=== PATIENT | male | born 1940 | race Caucasian/White ===

== ENCOUNTER 2021-08-18 09:43 | Inpatient (IN) | payer MEDICARE, BC ==
[2004-10-07 19:15] VITALS: BP 150/83
[~2021-08-18] VITALS: Ht 172.7 cm; Wt 102.0 kg
[2021-08-18] VITALS (12 sets, daily range): BP systolic 123–231; BP diastolic 59–107; PULSE 51–82; TEMP 97.5–97.9
[~2021-08-18 09:43] MED LIST: ASPIRIN; ASPIRIN 32325 MG/TAB PO; CLONIDINE0.2 MG PO; COZAAR100 MG PO; HCTZ 25MG TAB25 MG PO; K-DUR20 MEQ PO; NIASPAN1000 MG PO; PLAVIX 75MG TAB75 MG PO; PRAVACHOL 40MG40 MG PO; SYNTHROID0.05 MG/TA PO; ZOCOR 40MG40 MG PO; ZYLOPRIM 300MG300 MG PO
[2021-08-18] MEDS ORDERED: LASIX 20MG TABL20 MG PO (10:22)
[2021-08-18] MEDS ORDERED: CRESTOR20 MG PO (10:23)
[2021-08-18] MEDS ORDERED: MEGARED JOINT353 MG PO (10:23)
[2021-08-18] MEDS ORDERED: COREG 6.256.25 MG/TA PO (10:24)
[2021-08-18] MEDS ORDERED: DIOVAN 160MG160 MG PO (10:24)
[2021-08-18] MEDS ORDERED: KLOR-CON20 MEQ PO (10:25)
[2021-08-18] MEDS ORDERED: VESICARE 5MG5 MG PO (10:26)
[2021-08-18] MEDS ORDERED: ASPIRIN 81M81 MG/TA2 PO (10:28)
[2021-08-18] MEDS ORDERED: VITAMIN D 50,1.25 MG PO (10:29)
--- NOTE | 2021-08-18 15:30 | NUR ---
PT ARRIVED TO ROOM @ 1330 FROM PACU, HAD BEAR HUGGER ON, A&O X3, RESPIRATIONS UNLABORED ON RA, IVF INFUSING. ZAMUDIO CATHETER IN PLACE WITH CBI RUNNING @ A MODERATE RATE, DRAINAGE IS PINK ET CLEAR. SCDs APPLIED TO BILATERAL LEGS. PT'S SPOUSE IS @ BEDSIDE. PT HAS BEEN TOLERATING CLEAR LIQUIDS WELL, NO NAUSEA OR PAIN @ THIS TIME. PT'S DIET IS ADVANCED TO GENERAL, INSTRUCTED ON HOW TO ORDER MEALS.
--- NOTE | 2021-08-18 18:26 | NUR ---
PT STATES THAT HE IS HAVING BLADDER SPASMS, PAIN IS INTERMITTENT. DRAINAGE FROM ZAMUDIO CATHETER IS INCREASINGLY HARMAN RED, CBI RATE INCREASED TO A FAST RATE. B&O SUPPOSITORY ADMINISTERED WITH PO TYLENOL PER PT REQUEST. IVF INFUSING. RESPIRATIONS UNLABORED ON RA. CALL LIGHT WITHIN REACH.
--- NOTE | 2021-08-18 19:50 | NUR ---
PT REPORTS ABD PAIN, HAS LEAKAGE AROUND THE CATHETER, HAND IRRIGATED WITH RETURN OF MANY SMALL CLOTS, HAS IMMEDIATE RELIEF OF ABD PAIN. CBI WIDE OPEN.
--- NOTE | 2021-08-18 20:05 | NUR ---
ASSESSMENT COMPLETE. PT. LYING IN BED COMPLAINING OF BLADDER SPASM AND PAIN. A&O. ZAMUDIO SECURED WITH STAT LOCK AND DRAINING WITH CBI. URINE IS HARMAN RED COLOR. INT PATENT TO LEFT FORARM. ZAMUDIO WAS ASSESSED FOR CLOTS AND IRRIGATED. MORPHINE WAS GIVEN FOR PAIN. PT. REPORTS PAIN GREATLY REDUCED. CALL LIGHT IN REACH. NO FURTHER NEEDS AT THIS TIME.
[2021-08-19] VITALS (12 sets, daily range): BP systolic 106–141; BP diastolic 53–71; PULSE 59–71; TEMP 97.4–97.6
--- NOTE | 2021-08-19 02:37 | NUR ---
PT HAVING CONTINUED NEED FOR HAND IRRIGATION HOURLY WITH RETURN OF SMALL TO MODERATE SIZE CLOTS. B/P 106/68. RESTARTED IVF AT THIS TIME.
--- NOTE | 2021-08-19 02:46 | NUR ---
NOTIFIED DR AYALA OF PTS STATUS. MAKE NPO.
[2021-08-19 05:47] LABS: HEMATOCRIT 39.2 % (42.0-52.0); MEAN CELL VOLUME 89 fl (80.0-100.0); MEAN CORPUSCULAR HEMOGLOBIN 29 pg (27-31); MEAN CORPUSCULAR HGB CONC 33 g/dl (33.0-37.0); PLATELET COUNT 142 K/mm3 (130-400); RED BLOOD COUNT 4.43 M/mm3 (4.20-5.60); REDCELL DISTRIBUTION WIDTH-CV 14.9 % (11.5-14.5)
[2021-08-19 07:44] LABS: BAND 9 % (0-10); LYMPHOCYTE 8 % (20.0-51.0); PLATELET ESTIMATE NORMAL (NORMAL)
[2021-08-19 07:45] LABS: NEUTROPHILS 80 % (42.0-75.2)
--- NOTE | 2021-08-19 09:25 | NUR ---
PT HAND IRRIGATED THROUGH ZAMUDIO CATHETER @ THIS TIME. A FEW SMALL BLOOD CLOTS ARE SEEN. CBI CONTINUED @ A FAST RATE ET DRAINING WELL, DRAINAGE BECOMES CLEAR PINK. PT STATES THAT HE STARTS HAVING PAIN ET CAN TELL WHEN THE CATHTETER IS "CLOGGING UP". PT DENIES OTHER NEEDS. CALL LIGHT WITHIN REACH. IVF INFUSING.
--- NOTE | 2021-08-19 10:24 | NUR ---
PT'S ZAMUDIO CATHETER CONTINUES TO BECOME CLOGGED WITH CLOTS FREQUENTLY. PT HAS SEVERE CRAMPING INTERMEDIATE PAIN WHEN CATHETER STOPS DRAINING. CBI RUNNING @ A FAST RATE. SEVERAL MODERATE SIZED CLOTS HAVE HAND IRRIGATED.
--- NOTE | 2021-08-19 11:19 | NUR ---
PT TAKEN TO SURGERY @ THIS TIME. PRE-OP IVF INFUSING. CBI RUNNING @ A FAST RATE, DRAINAGE IS CLEAR PINK.
--- NOTE | 2021-08-19 14:13 | NUR ---
PT RETURNED TO ROOM FROM SURGERY @ 6275. SPOUSE IS @ BEDSIDE. POST-OP IVF INFUSING. ZAMUDIO CATHETER IN PLACE WITH CBI RUNNING @ A MODERATE RATE, DRAINAGE IS LIGHT PINK ET CLEAR. PT IS DROWSY BUT DOES NOT CLOSE HIS EYES, RATES BLADDER PAIN 5/10. ROXICODONE PO ADMINISTERED. PT IS GIVEN ICE WATER ET PUDDING TO EAT, TOLERATING WELL. CALL LIGHT WITHIN REACH.
--- NOTE | 2021-08-19 18:47 | NUR ---
PT IN BED WITH HOB ELEVATED, WATCHING TV, HAS EATEN DINNER WITH NO PROBLEMS. CBI RUNNING @ A SLOW RATE, DRAINAGE IS PINK ET CLEAR, NO CLOTS HAVE BEEN SEEN SINCE PT RETURNED FROM SURGERY. ZAMUDIO CATHETER IS IN PLACE. PT STATES THAT BLADDER PAIN HAS IMPROVED FROM THIS MORNING. PT WAS ASSISTED TO BR WITH SBA BUT WAS UNABLE TO HAVE A BM, HAS BEEN INSTRUCTED NOT TO STRAIN, VERBALIZES UNDERSTANDING. OXYGEN WAS TAKEN OFF @ THAT TIME, RESPIRATIONS HAVE REMAINED UNLABORED ON RA. IVF INFUSING. PT DENIES NEEDS. CALL LIGHT WITHIN REACH.
--- NOTE | 2021-08-19 19:58 | NUR ---
ASSESSMENT COMPLETE. PT. SITTING IN BED WATCHING TV. A&O. CBI DEPENDENT TO DRAINAGE WITH TEA COLORED URINE COLLECTING IN ZAMUDIO. NO COMPLAINTS OF NAUSEA. COMPLAINS OF MILD PAIN TO BLADDER. INT PATENT TO LEFT AC. CPAP SET UP READY TO USE. NO FURHTER NEEDS AT THIS TIME. CALL LIGHT IN REACH.
[2021-08-20 00:19] VITALS: BP 109/66; PULSE 63; TEMP 97.5
[2021-08-20 04:14] VITALS: BP 111/50; PULSE 63; TEMP 97.6
[2021-08-20 07:53] VITALS: BP 156/87; PULSE 59; TEMP 97.4
--- NOTE | 2021-08-20 10:08 | NUR ---
DR. RADER IN TO SEE PT THIS AM. DISCHARGE ORDERS RECIEVED. WILL PRIME AND PULL ZAMUDIO CATHETER THIS AM. PT DENIES NAUSEA OR VOMITING EATING AND DRINKING WELL.
[2021-08-20 11:54] VITALS: BP 121/53; PULSE 72; TEMP 97.5
--- NOTE | 2021-08-20 14:47 | NUR ---
DISCHARGE INSTRUCTIONS REVIEWED WITH PT AND . QUESTIONS SOLICITED AND ANSWERED. PT LEFT UNIT AFTER COMPLETING 6 BTTL ROUTINE WITH LAST SAMPLE LIGHT PINK WITH NO CLOTS. PT HAVING SOME FREQUENCY AND URGENCY BUT PT REPORTS THIS BASELINE.
== END 2021-08-20 14:49 | disposition home or self-care (01) | DRG 664 ==
LOC: SDCO 09:43 → SURG 09:43 → SDCO 12:30 → SURG 13:30 → SDCO 08-19 12:44 → SURG 08-19 12:45
PROVIDERS: ADMIT Urology
PROC: 0WCR8ZZ Extirpation of Matter from Genitourinary Tract, Via Natural or Artificial Opening Endoscopic (ICD-10-PCS; 2021-08-19)
PROC: 0W3R8ZZ Control Bleeding in Genitourinary Tract, Via Natural or Artificial Opening Endoscopic (ICD-10-PCS; principal; 2021-08-19 11:30)
PROC: 0TBB8ZZ Excision of Bladder, Via Natural or Artificial Opening Endoscopic (ICD-10-PCS; 2021-08-19 11:30)
DX: C67.8 Malignant neoplasm of overlapping sites of bladder (principal); K57.30 Diverticulosis of large intestine without perforation or abscess without bleeding; R31.0 Gross hematuria; I25.10 Atherosclerotic heart disease of native coronary artery without angina pectoris; E78.00 Pure hypercholesterolemia, unspecified; I10 Essential (primary) hypertension; E03.9 Hypothyroidism, unspecified; N40.0 Benign prostatic hyperplasia without lower urinary tract symptoms; G47.33 Obstructive sleep apnea (adult) (pediatric); M10.9 Gout, unspecified; E66.01 Morbid (severe) obesity due to excess calories; Z79.82 Long term (current) use of aspirin; Z95.5 Presence of coronary angioplasty implant and graft; Z95.1 Presence of aortocoronary bypass graft; Z87.891 Personal history of nicotine dependence; Z88.2 Allergy status to sulfonamides
CPT/HCPCS: OP; C1769; J0690; J1100; J1170; J2270; J2405; J2704; J3010; J3480; J7120

== ENCOUNTER 2021-08-20 19:47 | Emergency (ER) | payer MEDICARE, BC ==
[~2021-08-20] VITALS: Ht 167.6 cm; Wt 100.0 kg
[~2021-08-20 19:47] MED LIST changes: +ASPIRIN 81M81 MG/TA2 PO; +COREG 6.256.25 MG/TA PO; +CRESTOR20 MG PO; +DIOVAN 160MG160 MG PO; +KLOR-CON20 MEQ PO; +LASIX 20MG TABL20 MG PO; +MEGARED JOINT353 MG PO; +VESICARE 5MG5 MG PO; +VITAMIN D 50,1.25 MG PO
[2021-08-20 21:10] LABS: COLLECTION METHOD CLEAN CATCH
[2021-08-20 21:25] LABS: PH 6 (5-8); SQUAMOUS EPITHELIAL None Seen /hpf (0-10); URINE APPEARANCE Clear (CLEAR/HAZY); URINE BACTERIA None Seen /hpf (NONE SEEN); URINE BILIRUBIN Negative (NEGATIVE); URINE BLOOD 3+ (NEGATIVE); URINE COLOR Yellow (YELLOW); URINE GLUCOSE Negative (NEGATIVE); URINE KETONE Negative (NEGATIVE); URINE LEUKOCYTE ESTERASE 2+ (NEGATIVE); URINE NITRATE Negative (NEGATIVE); URINE PROTEIN(semi-quant) 1+ (NEGATIVE); URINE UROBILINOGEN Negative (NEGATIVE)
[2021-08-20 22:12] VITALS: BP 129/69; PULSE 61; TEMP 97.5
== END 2021-08-20 22:12 | disposition home or self-care (01) ==
LOC: COL.ER 19:47
PROVIDERS: Nurse Practitioner Primary Care
DX: R33.9 Retention of urine, unspecified (principal); Z85.51 Personal history of malignant neoplasm of bladder; Z87.891 Personal history of nicotine dependence; Z88.2 Allergy status to sulfonamides